=== PATIENT | female | born 1935 | race Caucasian/White ===

== ENCOUNTER 2020-01-15 16:11 | Inpatient (IN) | payer OTHER, MEDICAID, SELFPAY ==
[~2020-01-15] VITALS: Ht 160 cm; Wt 45.8 kg
[~2020-01-15 16:11] MED LIST: BACDS PO; ERYOO OU; MERREM IV1 GM INJ; QUETIAPINE FUMA25 M1 PO
[2020-01-15 16:21] VITALS: Ht 160 cm; Wt 45.8 kg
[2020-01-15 16:59] LABS: BASOPHIL % 0.5 % (0-2); PLATELET COUNT 149 x10^3mcL (130-400); RED CELL DISTRIBUTION WIDTH 14.2 % (11.5-14.5)
[2020-01-15 17:38] LABS: CALCIUM 8.2 mg/dL (8.5-10.1); CARBON DIOXIDE 33.2 mmol/L (21-32); CHLORIDE SERUM 108 mmol/L (98-107); CREATININE SERUM 0.7 mg/dL (0.6-1.0); GLUCOSE SERUM 85 mg/dL (74-106); POTASSIUM SERUM 4.2 mmol/L (3.5-5.1); SODIUM SERUM 148 mmol/L (136-145)
[2020-01-15 17:40] LABS: UA SPECIFIC GRAVITY 1.025 (1.005-1.035); microscopic required? YES; urine erythrocyte NEGATIVE (NEGATIVE)
[2020-01-15 17:44] LABS: ALBUMIN 3.5 g/dL (3.4-5.0); ALKALINE PHOSPHATASE 65 U/L (46-116); ALT/SGPT 36 U/L (14-59); AST/SGOT 37 U/L (15-37); BILIRUBIN TOTAL 0.53 mg/dL (0.20-1.00); C REACTIVE PROTEIN 0.8 mg/dL (<=0.9); LACTIC DEHYDROGENASE (LDH) 237 U/L (100-190); TOTAL PROTEIN, SERUM 7.1 g/dL (6.4-8.2)
[2020-01-16 02:27] VITALS: BP 102/48
[2020-01-16 07:13] LABS: BASOPHIL % 0.3 % (0-2); PLATELET COUNT 155 x10^3mcL (130-400); RED CELL DISTRIBUTION WIDTH 13.9 % (11.5-14.5)
[2020-01-16 07:59] LABS: CALCIUM 8.2 mg/dL (8.5-10.1); CARBON DIOXIDE 25.2 mmol/L (21-32); CHLORIDE SERUM 106 mmol/L (98-107); CREATININE SERUM 0.8 mg/dL (0.6-1.0); GLUCOSE SERUM 100 mg/dL (74-106); MAGNESIUM 1.9 mg/dL (1.8-2.4); PHOSPHOROUS 3.4 mg/dL (2.5-4.9); POTASSIUM SERUM 4.1 mmol/L (3.5-5.1); SODIUM SERUM 144 mmol/L (136-145)
[2020-01-16 09:55] VITALS: BP 115/73
[2020-01-16 13:46] VITALS: BP 117/52
[2020-01-16 16:41] VITALS: BP 127/68
[2020-01-16 20:10] VITALS: BP 119/54
[2020-01-17 05:50] VITALS: BP 133/58
[2020-01-17 08:44] VITALS: BP 140/70
[2020-01-17 10:35] LABS: C REACTIVE PROTEIN 0.5 mg/dL (<=0.9); CALCIUM 7.9 mg/dL (8.5-10.1); CARBON DIOXIDE 25.4 mmol/L (21-32); CHLORIDE SERUM 104 mmol/L (98-107); CREATININE SERUM 0.7 mg/dL (0.6-1.0); GLUCOSE SERUM 105 mg/dL (74-106); LACTIC DEHYDROGENASE (LDH) 277 U/L (100-190); MAGNESIUM 2.1 mg/dL (1.8-2.4); PHOSPHOROUS 2.9 mg/dL (2.5-4.9); POTASSIUM SERUM 4.2 mmol/L (3.5-5.1); SODIUM SERUM 140 mmol/L (136-145)
[2020-01-17 11:11] LABS: BASOPHIL % 0.2 % (0-2); PLATELET COUNT 158 x10^3mcL (130-400); RED CELL DISTRIBUTION WIDTH 14.1 % (11.5-14.5)
[2020-01-17 12:42] VITALS: BP 130/60
[2020-01-17 16:16] VITALS: BP 119/60
[2020-01-17 21:29] VITALS: BP 139/67
[2020-01-18 05:39] VITALS: BP 111/83
[2020-01-18 08:48] LABS: BASOPHIL % 0.1 % (0-2); PLATELET COUNT 162 x10^3mcL (130-400)
[2020-01-18 08:50] LABS: C REACTIVE PROTEIN 0.3 mg/dL (<=0.9); CARBON DIOXIDE 29.1 mmol/L (21-32); CHLORIDE SERUM 104 mmol/L (98-107); CREATININE SERUM 0.7 mg/dL (0.6-1.0); GLUCOSE SERUM 129 mg/dL (74-106); MAGNESIUM 2.1 mg/dL (1.8-2.4); POTASSIUM SERUM 3.5 mmol/L (3.5-5.1); SODIUM SERUM 141 mmol/L (136-145)
[2020-01-18 09:01] VITALS: BP 127/67
[2020-01-18 12:23] VITALS: BP 138/76
[2020-01-18 16:30] VITALS: BP 118/55
[2020-01-18 20:35] VITALS: BP 128/48
[2020-01-19 06:21] VITALS: BP 113/65
[2020-01-19 08:53] VITALS: BP 131/105
[2020-01-19 10:30] LABS: C REACTIVE PROTEIN 0.3 mg/dL (<=0.9); CALCIUM 8.3 mg/dL (8.5-10.1); CARBON DIOXIDE 33.2 mmol/L (21-32); CHLORIDE SERUM 102 mmol/L (98-107); CREATININE SERUM 0.6 mg/dL (0.6-1.0); GLUCOSE SERUM 133 mg/dL (74-106); POTASSIUM SERUM 4.2 mmol/L (3.5-5.1); SODIUM SERUM 139 mmol/L (136-145)
[2020-01-19 11:04] LABS: BASOPHIL % 0.1 % (0-2); PLATELET COUNT 146 x10^3mcL (130-400); RED CELL DISTRIBUTION WIDTH 13.6 % (11.5-14.5)
[2020-01-19 12:10] VITALS: BP 119/65
[2020-01-19 17:08] VITALS: BP 115/56
[2020-01-19 21:05] VITALS: BP 98/60
[2020-01-20 05:34] VITALS: BP 122/68
[2020-01-20 08:14] LABS: PLATELET COUNT 138 x10^3mcL (130-400); RED CELL DISTRIBUTION WIDTH 13.1 % (11.5-14.5)
[2020-01-20 08:26] VITALS: BP 118/49
[2020-01-20 08:39] LABS: CALCIUM 8.1 mg/dL (8.5-10.1); CARBON DIOXIDE 28.7 mmol/L (21-32); CHLORIDE SERUM 104 mmol/L (98-107); CREATININE SERUM 0.4 mg/dL (0.6-1.0); GLUCOSE SERUM 138 mg/dL (74-106); MAGNESIUM 2.2 mg/dL (1.8-2.4); POTASSIUM SERUM 3.9 mmol/L (3.5-5.1); SODIUM SERUM 139 mmol/L (136-145)
[2020-01-20 08:41] LABS: C REACTIVE PROTEIN < 0.2 mg/dL (<=0.9)
[2020-01-20 08:58] LABS: BASOPHIL % 0 % (0-2)
[2020-01-20 09:05] LABS: BILIRUBIN DIRECT 0.3 mg/dL (0.0-0.2)
[2020-01-20 09:12] LABS: ALBUMIN 3.1 g/dL (3.4-5.0); TOTAL PROTEIN, SERUM 5.9 g/dL (6.4-8.2)
[2020-01-20 13:14] VITALS: BP 112/40
[2020-01-20 16:28] VITALS: BP 115/58
[2020-01-20 21:30] VITALS: BP 133/61
[2020-01-21 05:56] VITALS: BP 136/64
[2020-01-21 09:10] LABS: BASOPHIL % 0.2 % (0-2); PLATELET COUNT 135 x10^3mcL (130-400); RED CELL DISTRIBUTION WIDTH 13.8 % (11.5-14.5)
[2020-01-21 09:32] LABS: ALKALINE PHOSPHATASE 43 U/L (46-116); ALT/SGPT 43 U/L (14-59); AST/SGOT 32 U/L (15-37); BILIRUBIN DIRECT 0.24 mg/dL (0.0-0.2); BILIRUBIN TOTAL 0.8 mg/dL (0.20-1.00); C REACTIVE PROTEIN 0.2 mg/dL (<=0.9); CALCIUM 8.1 mg/dL (8.5-10.1); CARBON DIOXIDE 31.1 mmol/L (21-32); CHLORIDE SERUM 104 mmol/L (98-107); CREATININE SERUM 0.5 mg/dL (0.6-1.0); GLUCOSE SERUM 87 mg/dL (74-106); POTASSIUM SERUM 3.9 mmol/L (3.5-5.1); SODIUM SERUM 142 mmol/L (136-145)
[2020-01-21 09:37] LABS: ALBUMIN 3.1 g/dL (3.4-5.0); TOTAL PROTEIN, SERUM 5.9 g/dL (6.4-8.2)
[2020-01-21 16:41] VITALS: BP 111/60
[2020-01-21 21:37] VITALS: BP 124/67
[2020-01-22 06:22] VITALS: BP 105/67
[2020-01-22 07:14] LABS: BASOPHIL % 0.2 % (0-2); PLATELET COUNT 136 x10^3mcL (130-400); RED CELL DISTRIBUTION WIDTH 13.4 % (11.5-14.5)
[2020-01-22 07:57] LABS: ALBUMIN 3.2 g/dL (3.4-5.0); ALKALINE PHOSPHATASE 50 U/L (46-116); ALT/SGPT 40 U/L (14-59); AST/SGOT 25 U/L (15-37); BILIRUBIN TOTAL 1.04 mg/dL (0.20-1.00); CALCIUM 8.1 mg/dL (8.5-10.1); CARBON DIOXIDE 28.9 mmol/L (21-32); CHLORIDE SERUM 104 mmol/L (98-107); CREATININE SERUM 0.5 mg/dL (0.6-1.0); GLUCOSE SERUM 134 mg/dL (74-106); POTASSIUM SERUM 4.2 mmol/L (3.5-5.1); SODIUM SERUM 142 mmol/L (136-145); TOTAL PROTEIN, SERUM 6.3 g/dL (6.4-8.2)
[2020-01-22 08:30] LABS: C REACTIVE PROTEIN < 0.2 mg/dL (<=0.9)
[2020-01-22 08:56] VITALS: BP 118/61
[2020-01-22 12:39] VITALS: BP 101/50
[2020-01-22 17:05] VITALS: BP 127/61
[2020-01-22 17:12] VITALS: BP 123/46; BP 133/46
[2020-01-22 20:48] VITALS: BP 135/68
[2020-01-23 04:18] LABS: CARBON DIOXIDE 27.3 mmol/L (21-32); CHLORIDE SERUM 103 mmol/L (98-107); CREATININE SERUM 0.6 mg/dL (0.6-1.0); GLUCOSE SERUM 176 mg/dL (74-106); MAGNESIUM 2.2 mg/dL (1.8-2.4); PHOSPHOROUS 2.9 mg/dL (2.5-4.9); POTASSIUM SERUM 4.3 mmol/L (3.5-5.1); SODIUM SERUM 139 mmol/L (136-145)
[2020-01-23 04:30] LABS: ALKALINE PHOSPHATASE 50 U/L (46-116); ALT/SGPT 36 U/L (14-59); AST/SGOT 21 U/L (15-37); BILIRUBIN DIRECT 0.27 mg/dL (0.0-0.2)
[2020-01-23 04:37] LABS: ALBUMIN 2.8 g/dL (3.4-5.0); TOTAL PROTEIN, SERUM 5.9 g/dL (6.4-8.2)
[2020-01-23 04:53] LABS: PLATELET COUNT 140 x10^3mcL (130-400); RED CELL DISTRIBUTION WIDTH 13.7 % (11.5-14.5)
[2020-01-23 04:54] LABS: BASOPHIL % 0 % (0-2)
[2020-01-23 06:05] VITALS: BP 96/63
[2020-01-23 09:02] VITALS: BP 130/76
[2020-01-23 12:32] VITALS: BP 141/72
[2020-01-23] MEDS ORDERED: RIS0.25 PO (14:51)
[2020-01-23 18:07] VITALS: BP 131/59
[2020-01-23 18:14] VITALS: BP 131/59
== END 2020-01-23 20:01 | DRG 177 ==
LOC: ED 16:11 → DU 18:59
PROVIDERS: Emergency Medicine; Internal Medicine; ADMIT Family Medicine; ATTEND Family Medicine
PROC: 30233L1 Transfusion of Nonautologous Fresh Plasma into Peripheral Vein, Percutaneous Approach (ICD-10-PCS; principal; 2020-01-19)
DX: U07.1 COVID-19 (principal); J96.01 Acute respiratory failure with hypoxia; J12.89 Other viral pneumonia; E43 Unspecified severe protein-calorie malnutrition; N17.0 Acute kidney failure with tubular necrosis; J44.1 Chronic obstructive pulmonary disease with (acute) exacerbation; E87.0 Hyperosmolality and hypernatremia; N39.0 Urinary tract infection, site not specified; J44.0 Chronic obstructive pulmonary disease with (acute) lower respiratory infection; Z68.1 Body mass index [BMI] 19.9 or less, adult; Z86.19 Personal history of other infectious and parasitic diseases; E86.0 Dehydration; E11.9 Type 2 diabetes mellitus without complications; F03.90 Unspecified dementia, unspecified severity, without behavioral disturbance, psychotic disturbance, mood disturbance, and anxiety; F29 Unspecified psychosis not due to a substance or known physiological condition; D64.9 Anemia, unspecified; F41.9 Anxiety disorder, unspecified; E87.8 Other disorders of electrolyte and fluid balance, not elsewhere classified; E78.00 Pure hypercholesterolemia, unspecified; Z79.899 Other long term (current) drug therapy; Z22.322 Carrier or suspected carrier of Methicillin resistant Staphylococcus aureus
CPT/HCPCS: 36600; 82962; 83880; 85378; 87804; G0378; J0456; J0461; J0696; J1100; J1644; J1650; J1956; J2185; J2920; J2930; J3535; J7030; J7060; Q0092; U0003-CS